=== PATIENT | male | born 1955 | race Caucasian/White ===

== ENCOUNTER 2017-11-19 18:26 | Emergency (ER) | payer MEDICAID ==
[2017-11-19] MEDS ORDERED: Sodium Chloride 0.45% 1,000 ML IV ONE (18:41)
--- NOTE | 2017-11-19 18:51 | ED Physician Chart ---
ED Chief Complaint/HPI - Patient Information Date Seen:: 11/12/17 Time Seen:: 18:37 Chief Complaint:: GENERALIZE WEAKNESS History of Present Illness:: THIS IS A 62 YO MALE PATIENT WHO IS CONCERNED ABOUT HIS WEAKNESS, DEHYDRATION AND HAS SOME MILD DEPRESSION. HE STATES THAT HE HAS BEEN VOMITING OVER THE LAST FEW DAYS. Allergies:: Allergies Allergy/AdvReac Type Severity Reaction Status Date / Time No Known Allergies Allergy Verified 11/19/17 18:31 Vitals:: Vital Signs - 8 hr 11/19/17 18:34 Temp 98.2 F HR 103 RR 22 BP 146/93 O2 Sat % 96 Historian:: Patient Review:: Nurse's Note Reviewed ED Review of Systems - Review of Systems General/Constitutional: No fever, No chills, No weight loss, Weakness, No diaphoresis, No edema, No loss of appetite Skin: No skin lesions, No rash, No bruising Head: No headache, No light-headedness Eyes: No loss of vision, No pain, No diplopia ENT: No earache, No nasal drainage, No sore throat, No tinnitus Neck: No neck pain, No swelling, No thyromegaly, No stiffness, No mass noted Cardio Vascular: No chest pain, No palpitations, No PND, No orthopnea, No edema Pulmonary: No SOB, No cough, No sputum, No wheezing GI: Nausea, Vomiting, No diarrhea, No pain, No melena, No hematochezia, No constipation, No hematemesis G/U: No dysuria, No frequency, No hematuria Musculoskeletal: No bone or joint pain, No back pain, No muscle pain Endocrine: No polyuria, No polydipsia Psychiatric: No prior psych history, Depression, No anxiety, No suicidal ideation Hematopoietic: No bruising, No lymphadenopathy Allergic/Immuno: No urticaria, No angioedema Neurological: No syncope, No focal symptoms, No weakness, No paresthesia, No headache, No seizure, No dizziness, No confusion, No vertigo ED Past Medical History - Past Medical History Obtainable: Yes Past Medical History: Dyslipidemia, Other (HAD CANCER OF THE NECK AND HAD SURGERY FOR IT) Family History: None Social History: Non Smoker, No Alcohol, No Drug Use, Surgical History: Hernia, other (NECK SURGERY FOR CANCER, RIGHT THUMB SURGERY TWICE, RIGHT INQUINAL ABSCESS SURGRERY.) Psychiatricy History: Depression Family Medical History - Family Member Mother History Unknown: Yes ED Physical Exam - Physical Examination General/Constitutional: Awake, Well-developed, well-nourished, Alert, No distress, GCS 15, Non-toxic appearing, Ambulatory Other Gen/Cons comments:: APPEARS WEAK. Head: Atraumatic Eyes: Lids, conjuctiva normal, PERRL, EOMI Skin: Nl inspection, No rash, No skin lesions, No ecchymosis, Well hydrated, No lymphadenopathy ENMT: External ears, nose nl, Nasal exam nl, Lips, teeth, gums nl Neck: Nontender, Full ROM w/o pain, No JVD, No nuchal rigidity, No bruit, No mass, No stridor Respiratory: Nl effort/Exclusion, Clear to Auscultation, No Wheeze/Rhonchi/Rales Cardio Vascular: RRR, No murmur, gallop, rubs, NL S1 S2 GI: No tenderness/rebounding/guarding, No organomegaly, No hernia, Normal BS's, Nondistended, No mass/bruits, No McBurney tenderness : No CVA tenderness Extremities: No tenderness or effusion, Full ROM, normal strength in all extremities, No edema, Normal digits & nails Neuro/Psych: Alert/oriented, DTR's symmetric, Normal sensory exam, Normal motor strength, Judgement/insight normal, Mood normal (DEPRESSED), Normal gait, No focal deficits Misc: Normal back, No paraspinal tenderness ED Assessment - Assessment General Assessment: VOMITING ED Septic Shock - . Is Septic Shock (SBP<90, OR Lactate>4 mmol\L) present?: No - <6hrs of presentation: Vital Signs: Vital Signs - 8 hr 11/19/17 18:34 Temp 98.2 F HR 103 RR 22 BP 146/93 O2 Sat % 96 ED Reassessment (Disposition) - Diagnosis Diagnosis:: WEAKNESS - Patient Disposition Accepting Physician:: THIS PATIENT WILL BE CARED FOR BY DR. STARKS STARTING AT 1900 HRS. Condition at Disposition:: Unchanged
[2017-11-19 19:02] LABS: % BASOPHILS 1.6 % (0.0-2.0); % EOSINOPHILS 0.4 % (0.0-5.0); % LYMPHOCYTES 7.5 % (20.0-50.0); % MONOCYTES 4.6 % (2.0-10.0); % NEUTROPHILS 85.9 % (40.0-80.0); BASOPHILE ABSOLUTE 0.1 Th/cumm (0-0.2); HEMATOCRIT 42.8 % (41.0-60); HEMOGLOBIN 14.5 gm/dL (12-16); LYMPHOCYTE ABSOLUTE 0.6 Th/cmm (1.5-3.0); MEAN CELL VOLUME 86.4 fl (80-99); MEAN CORPUSCULAR HEMOGLOBIN 29.2 pg (26.0-30.0); MEAN CORPUSCULAR HGB CONC 33.8 pg (28.0-36.0); MEAN PLATELET VOLUME 7.3 fl; MONOCYTE ABSOLUTE 0.4 Th/cmm (0.3-1.0); NEUTROPHILE ABSOLUTE 6.6 Th/cmm (1.8-8.0); PLATELET COUNT 261 Th/cmm (150-400); RED BLOOD COUNT 4.95 Mil/cmm (4.30-5.70); RED CELL DISTRIBUTION WIDTH 12.8 % (11.5-20.0); WHITE BLOOD COUNT 7.7 Th/cmm (4.8-10.8)
[2017-11-19 19:24] LABS: ALB/GLOB RATIO 1.7 (1.0-1.8); ALBUMIN 4.8 gm/dL (4.2-5.5); ALKALINE PHOSPHATASE 84 U/L (34-104); ANION GAP 14.9 (7.0-16.0); BILIRUBIN,TOTAL 0.5 mg/dL (0.3-1.0); BUN - UREA NITROGEN 16 mg/dL (7-25); CALCIUM SERUM 10.2 mg/dL (8.6-10.3); CHLORIDE 104 mEq/L (98-107); CREATININE - SERUM 0.7 mg/dL (0.7-1.3); GFR AFRICAN-AMERICAN > 60.0 ml/min (>90); GFR NON AFRICAN-AMERICAN > 60.0 ml/min; GLUCOSE 107 mg/dL (70-105); POTASSIUM SERUM 3.9 mEq/L (3.5-5.1); SGOT 30 U/L (13-39); SGPT/ALT 28 U/L (7-52); SODIUM SERUM 137 mEq/L (136-145); TOTAL PROTEIN,SERUM 7.6 gm/dL (6.0-8.3)
[2017-11-19] MEDS ORDERED: Sodium Chloride 0.9% 1,000 ML IV ONE (19:52)
[2017-11-19 20:03] LABS: BAND NEUTROPHILE 2 % (0-10); BASOPHIL 0 % (0-3); EOSINOPHIL 1 % (0-5); LYMPHOCYTE 74 % (20-50); MONOCYTE 4 % (2-10); NEUTROPHILS 79 % (40-80); PLATELET ESTIMATE ADEQUATE (NORMAL); PLATELET MORPHOLOGY NORMAL (NORMAL)
--- NOTE | 2017-11-20 08:34 | Diagnostic Imaging Report ---
CHEST X-RAY: AP view INDICATION: pain COMPARISON: None FINDINGS: Mild chronic lung changes are noted. There is no focal consolidation or pleural effusions The heart is normal in size. The osseous structures demonstrate no acute abnormalities. IMPRESSION: No acute cardiopulmonary disease.
== END 2017-11-19 21:12 | disposition home or self-care (01) ==
LOC: ER 18:26
DX: R53.1 Weakness (principal); E86.0 Dehydration; F32.9 Major depressive disorder, single episode, unspecified; E78.5 Hyperlipidemia, unspecified; Z98.890 Other specified postprocedural states
CPT/HCPCS: 99285; 96374; 93005; 71045; 84484; 36415; 84443; 85007; 85025; 83690; 80053; 87040 ×2; J2405; J7030

== ENCOUNTER 2018-02-14 17:21 | Emergency (ER) | payer MEDICAID ==
[2018-02-14] MEDS ORDERED: Sodium Chloride 0.9% 1,000 ML IV ONE (17:48)
--- NOTE | 2018-02-14 17:54 | ED Physician Chart ---
ED Chief Complaint/HPI - Patient Information Date Seen:: 02/14/18 Time Seen:: 17:40 Chief Complaint:: vomiting History of Present Illness:: Patient vomited once yesterday and 2 times today. No diarrhea. No nausea or abdominal pain at present. Patient had atraumatic neck pain yesterday improved today. Allergies:: Allergies Allergy/AdvReac Type Severity Reaction Status Date / Time No Known Allergies Allergy Verified 11/19/17 18:31 Vitals:: Vital Signs - 8 hr 02/14/18 17:26 Temp 98.1 F HR 109 RR 16 BP 127/96 O2 Sat % 96 Historian:: Patient Review:: Nurse's Note Reviewed ED Review of Systems - Review of Systems General/Constitutional: No fever, No chills Skin: No skin lesions Head: No headache Eyes: No loss of vision ENT: No earache Neck: Neck pain Cardio Vascular: No chest pain Pulmonary: No SOB GI: Nausea, Vomiting G/U: No dysuria, No frequency, No hematuria Musculoskeletal: No bone or joint pain Endocrine: No polyuria, No polydipsia Psychiatric: No prior psych history Hematopoietic: No bruising Allergic/Immuno: No urticaria Neurological: No syncope Family Medical History - Family Member Mother History Unknown: Yes ED Physical Exam - Physical Examination General/Constitutional: Awake, Well-developed, well-nourished, Alert, No distress, GCS 15, Non-toxic appearing, Ambulatory Head: Atraumatic Eyes: Lids, conjuctiva normal, PERRL, EOMI Skin: Nl inspection, No rash, No skin lesions, No ecchymosis, Well hydrated, No lymphadenopathy ENMT: External ears, nose nl, Nasal exam nl, Lips, teeth, gums nl Neck: Nontender, Full ROM w/o pain, No JVD, No nuchal rigidity, No bruit, No mass, No stridor Respiratory: Nl effort/Exclusion, Clear to Auscultation, No Wheeze/Rhonchi/Rales Cardio Vascular: RRR, No murmur, gallop, rubs, NL S1 S2 GI: No tenderness/rebounding/guarding, No organomegaly, No hernia, Normal BS's, Nondistended, No mass/bruits, No McBurney tenderness : No CVA tenderness Extremities: No tenderness or effusion, Full ROM, normal strength in all extremities, No edema, Normal digits & nails Neuro/Psych: Alert/oriented, DTR's symmetric, Normal sensory exam, Normal motor strength, Judgement/insight normal, Mood normal, Normal gait, No focal deficits Misc: Normal back, No paraspinal tenderness ED Labs/Radiology/EKG Results - Lab Results Results: Laboratory Results - last 24 hr 02/14/18 02/14/18 17:55 17:55 WBC 9.1 RBC 5.34 Hgb 15.6 Hct 46.7 MCV 87.5 MCH 29.2 MCHC Differential 33.4 RDW 12.7 Plt Count 287 MPV 7.8 Add Manual Diff YES Band Neutrophils % 2 Neutrophils (Manual) 90 H Lymphocytes 6 L Monocytes 2 Eosinophils 0 Basophils 0 Platelet Estimate ADEQUATE Platelet Morphology NORMAL RBC Morph Micro Appear NORMAL Sodium 138 Potassium 3.7 Chloride 100 Carbon Dioxide 23.7 Anion Gap 18.0 H BUN 15 Creatinine 0.8 Est GFR ( Amer) > 60.0 Est GFR (Non-Af Amer) > 60.0 BUN/Creatinine Ratio 18.8 Glucose 109 H Calcium 10.1 Magnesium 2.1 Lipase 7 L ED Assessment - Assessment General Assessment: At 1950 patient felt improved. ED Septic Shock - . Is Septic Shock (SBP<90, OR Lactate>4 mmol\L) present?: No - <6hrs of presentation: Vital Signs: Vital Signs - 8 hr 02/14/18 17:26 Temp 98.1 F HR 109 RR 16 BP 127/96 O2 Sat % 96 ED Reassessment (Disposition) - Reassessment Reassessment Condition:: Improved - Diagnosis Diagnosis:: Gastritis - Aftercare/Follow up Instructions Aftercare/Follow-Up Instructions:: Refer to Discharge Instructions Medication Prescribed:: Zofran 4 mg oral disintegrating tablet #10 to use one every 4 hours as necessary for nausea and vomiting - Patient Disposition Discharge/Transfer:: Home Condition at Disposition:: Stable, Improved
[2018-02-14 18:17] LABS: BUN - UREA NITROGEN 15 mg/dL (7-25); CALCIUM SERUM 10.1 mg/dL (8.6-10.3); CARBON DIOXIDE 23.7 mEq/L (21.0-31.0); CHLORIDE 100 mEq/L (98-107); CREATININE - SERUM 0.8 mg/dL (0.7-1.3); GFR AFRICAN-AMERICAN > 60.0 ml/min (>90); GFR NON AFRICAN-AMERICAN > 60.0 ml/min; GLUCOSE 109 mg/dL (70-105); LIPASE 7 U/L (11-82); MAGNESIUM 2.1 mg/dL (1.9-2.7); POTASSIUM SERUM 3.7 mEq/L (3.5-5.1); SODIUM SERUM 138 mEq/L (136-145)
[2018-02-14 18:19] LABS: HEMATOCRIT 46.7 % (41.0-60); HEMOGLOBIN 15.6 gm/dL (12-16); MEAN CELL VOLUME 87.5 fl (80-99); MEAN CORPUSCULAR HEMOGLOBIN 29.2 pg (26.0-30.0); MEAN CORPUSCULAR HGB CONC 33.4 pg (28.0-36.0); MEAN PLATELET VOLUME 7.8 fl; PLATELET COUNT 287 Th/cmm (150-400); RED BLOOD COUNT 5.34 Mil/cmm (4.30-5.70); RED CELL DISTRIBUTION WIDTH 12.7 % (11.5-20.0); WHITE BLOOD COUNT 9.1 Th/cmm (4.8-10.8)
[2018-02-14 19:21] LABS: BAND NEUTROPHILE 2 % (0-10); BASOPHIL 0 % (0-3); EOSINOPHIL 0 % (0-5); LYMPHOCYTE 6 % (20-50); MONOCYTE 2 % (2-10); NEUTROPHILS 90 % (40-80)
[2018-02-14 19:22] LABS: PLATELET ESTIMATE ADEQUATE (NORMAL); PLATELET MORPHOLOGY NORMAL (NORMAL)
[2018-02-14 20:15] LABS: URINE SOURCE MIDSTREAM
[2018-02-14 20:18] LABS: URINE BILIRUBIN NEGATIVE (NEGATIVE); URINE BLOOD SMALL (NEGATIVE); URINE GLUCOSE (UA) NEGATIVE (NEGATIVE); URINE KETONE 15 mg/dL (NEGATIVE); URINE LEUKOCYTE ESTERASE NEGATIVE (NEGATIVE); URINE MICROSCOPIC INDICATED? YES; URINE NITRATE NEGATIVE (NEGATIVE); URINE PH 6.5 (4.6 - 8.0); URINE PROTEIN NEGATIVE (NEGATIVE); URINE UROBILINOGEN 0.2 E.U./dL (0.2 - 1.0)
[2018-02-14 20:45] LABS: URINE CLARITY CLEAR (CLEAR); URINE COLOR YELLOW
[2018-02-14 20:53] LABS: URINE BACTERIA NONE SEEN /hpf (NONE SEEN); URINE EPITHELIAL CELLS RARE /lpf (FEW); URINE WBC 0-2 /hpf (0-5)
== END 2018-02-14 20:00 | disposition home or self-care (01) ==
LOC: ER 17:21
DX: K29.70 Gastritis, unspecified, without bleeding (principal)
CPT/HCPCS: 99284; 96374; 36415; 85007; 85025; 81001; 83690; 83735; 80048; J2405; J7030; Z7502

== ENCOUNTER 2019-01-01 03:51 | Emergency (ER) | payer MEDICAID ==
--- NOTE | 2019-01-01 09:44 | ER Physician Documentation ---
DATE OF SERVICE: 01/01/2019 EMERGENCY ROOM EVALUATION AND TREATMENT HISTORY OF PRESENT ILLNESS: A 63-year-old male patient seen by me, came to the ER at 3:55. He says he lives right across the [place] and he is a patient of Dr. Zack Lucero. He came from home. He was brought by ambulance and he walked in. He took one Xanax 0.5 mg at home. His chief complaint is anxiety and panic attack. The patient has been taking marijuana every night for the past 2 years at least. He says he takes only 2 puffs, but god knows whether he takes 2 puffs or more than that and he did the same thing today, then he slept and then he was awakened. He could not sleep and he felt a little nervous, I think. He took a Xanax at 3:30, 0.5 mg and he came over here. He walked over here. Here, he states that he came by ambulance, so I am not sure whether he came by ambulance. The nurses saw the patient. The patient says he became short of breath. He became anxious. He woke up. The nurse took the vital signs showing 98.2, pulse 93, respirations 18, blood pressure 123/76, saturation 96%. No known allergies. Pain schedule, pain is 0-10/10. There is absolutely no pain. No difficulty in breathing. He is full code. He is ambulatory. His weight is 160 pounds. PAST MEDICAL HISTORY: Hyperlipidemia and anxiety and he has Xanax at home. PAST SURGICAL HISTORY: Includes a history of hernia, right thumb had some abscess, etc. FAMILY HISTORY: Within normal limits. Benign and negative. PERSONAL HISTORY: He is . He lives alone by himself. He is about ____ years old. ALLERGIES: None known. REVIEW OF SYSTEMS: EYES: No double vision, blurring, blindness, injury to the eyes. CENTRAL NERVOUS SYSTEM: No history of head injury. No history of fall. No history of any fracture. No history of any anxiety attack before. This is the first time he says to me that he got this and he does not have any known allergies to it and he says for 2 years, he has been smoking a pipe with marijuana and everytime day he says he just smokes 2 puffs and he just keeps it down and this is also a little bit unusual. There is no pain. There is no evidence of any short of breath. There is no history of central nervous system disease, TIA, stroke, encephalitis, meningitis, paralysis, weakness, walking gait, etc. Within normal limits. He is awake. He is alert. He recognized me, I recognized him. I had seen him, it looks like in the past to the best of my knowledge, but I may be forgetting, but I think I had seen him before. CHEST: The patient's lungs are clear. Trachea being central, fairly good air entry in both lungs without any rales, rhonchi, or bronchial breathing. HEART: Reveals normal heart sounds ____ heart sounds. Third heart sound is absent. ABDOMEN: Soft, benign and negative. Surgical scar of hernia present. Bowel sounds are normal. No evidence of any ascites, cirrhotic liver, or portal hypertension present. CENTRAL NERVOUS SYSTEM: Normal. BACK: No CVA tenderness. GENITOURINARY: No evidence of any prostate problems. CLINICAL IMPRESSION: The patient's complaint was that the patient felt anxious and had short of breath. I do not find any short of breath. The lungs are absolutely crystal clear. No rales, no rhonchi. No bronchial breathing. Heart sounds normal. Belly, normal. Physical examination essentially is within normal limits. The patient took 1.5 mg tablet of Xanax at home and then he came here and it was 45 minutes ago he took 0.5 mg Xanax. The patient does not need any further workup or treatment. The patient was advised to be discharged for home and he can go home and take a Tylenol tablet and along with that if he needs it, he can take a half of Xanax tablet of 0.5 mg and can go back to sleep and he should be fine. Other diagnoses are hyperlipidemia, anxiety, history of hernia, right thumb abscess in the past. The patient of Dr. Lucero, referred back to Dr. Lucero for further continuation of the treatment. Thanks to all nurses for your better help in taking care of this patient. JOB# [id number]
== END 2019-01-01 04:20 | disposition home or self-care (01) ==
LOC: ER 03:51
DX: F41.0 Panic disorder [episodic paroxysmal anxiety] (principal); E78.5 Hyperlipidemia, unspecified; Z98.890 Other specified postprocedural states
CPT/HCPCS: Z7502